=== PATIENT | male | born 1990 | race Caucasian/White ===

== ENCOUNTER → 2016-11-17 | Outpatient (CLI) | payer OTHER ==
[~2016-11-17] MED LIST: NORCO 7.5-3251 EACH PO; TRILEPTAL300 MG PO
== END ==
LOC: OPSV2 08:00
DX: Z01.818 Encounter for other preprocedural examination (principal); K82.8 Other specified diseases of gallbladder

== ENCOUNTER → 2016-11-19 | Day surgery (SDC) | payer OTHER | END | disposition home or self-care (01) | LOC: OR 07:30 | PROVIDERS: Surgery | PROC: 0FT44ZZ Resection of Gallbladder, Percutaneous Endoscopic Approach (ICD-10-PCS; principal; 2016-11-19 10:00) | DX: K81.1 Chronic cholecystitis (principal); G89.29 Other chronic pain; R10.13 Epigastric pain; K21.9 Gastro-esophageal reflux disease without esophagitis; G43.909 Migraine, unspecified, not intractable, without status migrainosus; G47.30 Sleep apnea, unspecified; J45.909 Unspecified asthma, uncomplicated; Z88.1 Allergy status to other antibiotic agents; Z83.42 Family history of familial hypercholesterolemia; Z82.49 Family history of ischemic heart disease and other diseases of the circulatory system; Z81.1 Family history of alcohol abuse and dependence; Z82.61 Family history of arthritis; Z82.5 Family history of asthma and other chronic lower respiratory diseases | CPT/HCPCS: J0295; J1100; J2250; J2405; J2710; J3010; J7030; J7050; J7120 ==

== ENCOUNTER 2016-12-07 18:35 | Emergency (ER) | payer OTHER | END 2016-12-07 22:40 | disposition home or self-care (01) | LOC: ER1 18:35 | DX: Z48.02 Encounter for removal of sutures (principal); Z90.49 Acquired absence of other specified parts of digestive tract; Z88.1 Allergy status to other antibiotic agents | CPT/HCPCS: 99283 ==

== ENCOUNTER 2016-12-18 18:43 | Emergency (ER) | payer OTHER ==
[2016-12-18 21:01] LABS: HEMOGLOBIN 14.1 gm/dl (14.0-17.5); RED BLOOD COUNT 4.75 M/UL (4.20-5.50); WHITE BLOOD COUNT 7.8 K/UL (4.5-11.0)
[2016-12-18 21:28] LABS: BUN/CREATININE RATIO 17 (0-10)
== END 2016-12-19 | disposition home or self-care (01) ==
LOC: ER1 18:43
PROVIDERS: Student in an Organized Health Care Education/Training Program
DX: R51 Headache (principal); G40.909 Epilepsy, unspecified, not intractable, without status epilepticus; R20.2 Paresthesia of skin; R53.1 Weakness; R11.0 Nausea; Z79.899 Other long term (current) drug therapy
CPT/HCPCS: 36415; 80053; 80183; 81001; 83735; 85025; 87086; 96360; 99284